=== PATIENT | female | born 1940 | race Caucasian/White ===

== ENCOUNTER 2018-03-06 13:28 | Day surgery (SDC) | payer MEDICARE, OTHER ==
[~2018-03-06] VITALS: Ht 160 cm; Wt 52.2 kg
[~2018-03-06 13:28] MED LIST: ASPI-496 PO; CARV6.2512 PO; CELE200C PO; DIPH25CA61 PO; ENAL20TA PO; LOPE1TAB4 PO; MAGNESIUM PO; MULT-516 PO; SIMV40TA3 PO; UBID100C24 PO; VISIPAQUE 270 MG/ML, 50ML BOTTLE ONE
[2018-03-06 14:30] VITALS: BP 171/89
[2018-03-06] MEDS ORDERED: SODIUM CHLORIDE 0.9% 1,000 ML IV SCH (14:32)
[2018-03-06] MEDS ORDERED: TRAM50TA2 PO (14:33)
[2018-03-06 15:07] LABS: ANION GAP 5 mmol/L (5-15); CALCIUM 9.2 mg/dL (8.5-10.1); CHLORIDE 104 mmol/L (98-107); CREATININE 0.91 mg/dL (0.55-1.02)
[2018-03-06] MEDS ORDERED: NITROGLYCERIN 5 MG/ML, 10ML ONE (15:41)
[2018-03-06] MEDS ORDERED: HEPARIN 1,000 UNITS/ML, 10ML ONE (15:41)
[2018-03-06] MEDS ORDERED: MIDAZOLAM 1 MG/ML, 5ML ONE (15:41)
[2018-03-06] MEDS ORDERED: NALOXONE 1 MG/ML, 2ML ONE (15:41)
[2018-03-06] MEDS ORDERED: FLUMAZENIL 0.1 MG/1 ML, 5ML ONE (15:41)
[2018-03-06] MEDS ORDERED: FENTANYL PF 100 MCG/2ML ONE (15:41)
[2018-03-06] MEDS ORDERED: PROTAMINE SULFATE 10 MG/ML, 25ML ONE (15:42)
[2018-03-06] MEDS ORDERED: hydrALAzine 20 MG/ML, 1ML ONE (16:11)
[2018-03-06] MEDS ORDERED: ONDANSETRON 2MG/ML, 2ML ONE (17:49)
[2018-03-06] MEDS ORDERED: ONDANSETRON 2MG/ML, 2ML IV PRN (18:00)
[2018-03-06 18:10] LABS: MEAN CORPUSCULAR HEMOGLOBIN 31.3 pg (27.0-34.8); MEAN CORPUSCULAR HGB CONC 33.4 g/dL (32.4-35.8); MEAN CORPUSCULAR VOLUME 93.6 fL (80-100); RED BLOOD COUNT 4.72 x10^6/uL (3.82-5.3); RED CELL DISTRIBUTION WIDTH 13.9 % (9.6-15.2)
[2018-03-06 18:16] LABS: BASOPHILS # (AUTO) 0.03 x10^3/uL (0-0.1); BASOPHILS % (AUTO) 1 % (0-1); EOSINOPHILS # (AUTO) 0.13 x10^3/uL (0-0.4); EOSINOPHILS % (AUTO) 2 % (1-7); LYMPHOCYTES # (AUTO) 2.69 x10^3/uL (1-3.4); LYMPHOCYTES % (AUTO) 35 % (22-44); MD SCAN; MONOCYTES # (AUTO) 0.79 x10^3/uL (0.2-0.8); MONOCYTES % (AUTO) 10 % (2-9); NEUTROPHILS # (AUTO) 4.04 x10^3/uL (1.8-6.8); NEUTROPHILS % (AUTO) 53 % (42-75)
== END 2018-03-06 18:50 | disposition home or self-care (01) ==
LOC: STAR 13:28 → OUT 18:50
PROVIDERS: ATTEND Surgery
DX: K55.1 Chronic vascular disorders of intestine (principal); K52.9 Noninfective gastroenteritis and colitis, unspecified; I10 Essential (primary) hypertension; E78.00 Pure hypercholesterolemia, unspecified; G89.29 Other chronic pain; Z90.49 Acquired absence of other specified parts of digestive tract; Z96.649 Presence of unspecified artificial hip joint; Z98.49 Cataract extraction status, unspecified eye; Z88.5 Allergy status to narcotic agent; Z72.89 Other problems related to lifestyle; Z87.891 Personal history of nicotine dependence; Z79.82 Long term (current) use of aspirin; Z79.899 Other long term (current) drug therapy; Z98.890 Other specified postprocedural states
CPT/HCPCS: 36200; 36415; 75625; 80048; 85025; C1751; C1769; C1894; J0360; J2250; J2405; J3010; Q9966; J1644; J2720; J2310